=== PATIENT | male | born 1995 | race Caucasian/White ===

== ENCOUNTER 2018-04-05 21:12 | Inpatient (IN) | payer SELFPAY ==
[~2018-04-05] VITALS: Ht 177.8 cm; Wt 56.7 kg
[2018-04-05] MEDS ORDERED: VANCOMYCIN 1 GM VIAL ONE (23:25)
[2018-04-05] MEDS ORDERED: VANCOMYCIN 1 GM in IV D5W 250 ML IV ONE (23:30)
[2018-04-05 23:54] LABS: BASOPHILS # (AUTO) 0.1 /CMM (0.0-0.2); BASOPHILS % (AUTO) 0.6 % (0.0-2.0); EOSINOPHILS % (AUTO) 2.2 % (0.0-6.0); HEMATOCRIT 51 % (39-51); HEMOGLOBIN 16.2 g/dL (13.5-17.5); LYMPHOCYTES # (AUTO) 2.3 /CMM (0.8-4.8); LYMPHOCYTES % (AUTO) 26.8 % (20.0-44.0); MEAN CORPUSCULAR HEMOGLOBIN 29 PG (26.0-33.0); MEAN CORPUSCULAR HGB CONC 32 g/dl (31.0-36.0); MEAN CORPUSCULAR VOLUME 92 fL (80-96); MONOCYTES # (AUTO) 0.5 /CMM (0.1-1.30); MONOCYTES % (AUTO) 5.9 % (2.0-12.0); NEUTROPHILS # (AUTO) 5.5 /CMM (1.8-8.9); NEUTROPHILS % (AUTO) 64.5 % (43.0-81.0); PLATELET COUNT (AUTO) 286 /CMM (150-450); RDW COEFFICIENT OF VARIATION 13.2 (11.5-15.0); RED BLOOD CELL COUNT(AUTO) 5.57 MIL/uL (4.5-6.0); WHITE BLOOD COUNT (AUTO) 8.6 K/uL (4.3-11.0)
[2018-04-06 00:06] LABS: CALCIUM, SERUM 9.2 mg/dL (8.5-10.1); POTASSIUM 3.7 mmol/L (3.5-5.1)
[2018-04-06 00:12] LABS: INR 0.99 (0.87-1.13)
[2018-04-06] MEDS ORDERED: diphenhydrAMINE HCL 50 MG/ML VIAL ONE (00:35)
[2018-04-06] MEDS ORDERED: diphenhydrAMINE HCL 50 MG/ML VIAL IV ONE (01:00)
[2018-04-06] MEDS ORDERED: ONDANSETRON HCL/PF 4 MG/2 ML VIAL IVP PRN (02:30)
[2018-04-06] MEDS ORDERED: ACETAMINOPHEN 325 MG TABLET PO PRN (02:30)
[2018-04-06] MEDS ORDERED: diphenhydrAMINE HCL 50 MG/ML VIAL IV PRN (02:30)
[2018-04-06] MEDS ORDERED: ZOLPIDEM TARTRATE 5 MG TABLET PO PRN (02:30)
[2018-04-06 02:48] VITALS: BP 114/69
[2018-04-06 04:00] VITALS: BP 116/68
[2018-04-06] MEDS ORDERED: CLINDAMYCIN IV RTU IN D5W 600 MG/50 ML PIGGYBACK IV ONE (05:00)
[2018-04-06] MEDS ORDERED: CLINDAMYCIN 900 MG/6 ML VIAL ONE (05:21)
[2018-04-06 08:00] VITALS: BP 105/67
[2018-04-06] MEDS ORDERED: CLINDAMYCIN IV RTU IN D5W 900 MG/50 ML PIGGYBACK IV SCH (11:00)
[2018-04-06] MEDS: CLINDAMYCIN 900 MG in IV D5W 50 ML IV SCH ×2 (13:23→20:20)
[2018-04-06 16:00] VITALS: BP 119/74
[2018-04-06] MEDS: HYDROCODONE/APAP 10/325MG 1 EA TABLET PO PRN (17:37)
[2018-04-06 20:00] VITALS: BP 112/68
[2018-04-07 04:00] VITALS: BP 107/54
[2018-04-07] MEDS: CLINDAMYCIN 900 MG in IV D5W 50 ML IV SCH ×3 (05:00→21:04)
[2018-04-07 07:24] LABS: BASOPHILS % (AUTO) 0.4 % (0.0-2.0); EOSINOPHILS % (AUTO) 2.7 % (0.0-6.0); HEMATOCRIT 48 % (39-51); HEMOGLOBIN 15.6 g/dL (13.5-17.5); LYMPHOCYTES % (AUTO) 26.8 % (20.0-44.0); MEAN CORPUSCULAR HEMOGLOBIN 30 PG (26.0-33.0); MEAN CORPUSCULAR HGB CONC 33 g/dl (31.0-36.0); MEAN CORPUSCULAR VOLUME 92 fL (80-96); MONOCYTES # (AUTO) 0.7 /CMM (0.1-1.30); MONOCYTES % (AUTO) 9.4 % (2.0-12.0); NEUTROPHILS # (AUTO) 4.4 /CMM (1.8-8.9); NEUTROPHILS % (AUTO) 60.7 % (43.0-81.0); PLATELET COUNT (AUTO) 266 /CMM (150-450); RDW COEFFICIENT OF VARIATION 13.1 (11.5-15.0); RED BLOOD CELL COUNT(AUTO) 5.17 MIL/uL (4.5-6.0); WHITE BLOOD COUNT (AUTO) 7.3 K/uL (4.3-11.0)
[2018-04-07 07:36] LABS: CALCIUM, SERUM 9.4 mg/dL (8.5-10.1); CREATININE 1.2 mg/dL (0.6-1.3); MAGNESIUM 2.3 mg/dL (1.8-2.4); PHOSPHORUS 4.9 mg/dL (2.5-4.9); POTASSIUM 4.2 mmol/L (3.5-5.1)
[2018-04-07 08:00] VITALS: BP 104/49
[2018-04-07] MEDS: HYDROCODONE/APAP 10/325MG 1 EA TABLET PO PRN ×2 (10:18→15:50)
[2018-04-07 16:00] VITALS: BP 115/71
[2018-04-07 20:00] VITALS: BP 114/68
[2018-04-08 04:00] VITALS: BP 110/61
[2018-04-08] MEDS: CLINDAMYCIN 900 MG in IV D5W 50 ML IV SCH ×3 (05:17→20:21)
[2018-04-08 08:00] VITALS: BP 104/89
[2018-04-08] MEDS: DAKINS QUARTER STRENGTH (0.125%) 480 ML BOTTLE TOP SCH (08:03)
[2018-04-08] MEDS: HYDROCODONE/APAP 10/325MG 1 EA TABLET PO PRN ×2 (09:56→16:32)
[2018-04-08] MEDS ORDERED: ACET325T53 PO (14:20)
[2018-04-08 16:00] VITALS: BP 115/69
[2018-04-09 04:00] VITALS: BP 104/66
[2018-04-09] MEDS: CLINDAMYCIN 900 MG in IV D5W 50 ML IV SCH ×2 (05:29→12:00)
[2018-04-09 08:00] VITALS: BP 126/56
[2018-04-09] MEDS: DAKINS QUARTER STRENGTH (0.125%) 480 ML BOTTLE TOP SCH (09:08)
== END 2018-04-09 13:53 | disposition home health service (06) | DRG 502 ==
LOC: ER 21:21 → MEDSG1 04-06 01:02
PROVIDERS: ADMIT Nurse Practitioner Acute Care; ATTEND Student in an Organized Health Care Education/Training Program
PROC: 0KBV0ZZ Excision of Right Foot Muscle, Open Approach (ICD-10-PCS; principal; 2018-04-07)
PROC: 02HV33Z Insertion of Infusion Device into Superior Vena Cava, Percutaneous Approach (ICD-10-PCS; 2018-04-08)
PROC: B548ZZA Ultrasonography of Superior Vena Cava, Guidance (ICD-10-PCS; 2018-04-08)
DX: M86.171 Other acute osteomyelitis, right ankle and foot (principal); L03.031 Cellulitis of right toe; L97.519 Non-pressure chronic ulcer of other part of right foot with unspecified severity; F17.210 Nicotine dependence, cigarettes, uncomplicated; Z88.1 Allergy status to other antibiotic agents; F12.90 Cannabis use, unspecified, uncomplicated
CPT/HCPCS: 36415; 71045-TC; 73660-TC; 73718-TC; 80048-TC; 80061-TC; 83605-TC; 83735-TC; 84100-TC; 85025-TC; 85730-TC; 87040-TC; 87081-TC; A4606; A6402; A6407; C1751; J1200; J3370; J3490; J7050; J7060; Z7610

== ENCOUNTER 2018-04-16 08:50 | Outpatient (CLI) | payer SELFPAY ==
[~2018-04-16 08:50] MED LIST: ACET325T53 PO
== END 2018-04-16 23:59 | disposition home or self-care (01) ==
LOC: WOU 08:50
PROVIDERS: ATTEND Nurse Practitioner
DX: L03.031 Cellulitis of right toe (principal); S91.101D Unspecified open wound of right great toe without damage to nail, subsequent encounter; X58.XXXD Exposure to other specified factors, subsequent encounter; M86.171 Other acute osteomyelitis, right ankle and foot; Z72.0 Tobacco use
CPT/HCPCS: 99213; A6402; G0463

== ENCOUNTER 2018-05-25 14:18 | Outpatient (CLI) | payer SELFPAY | END 2018-05-25 23:59 | disposition home or self-care (01) | LOC: RAD 14:18 | PROVIDERS: ATTEND Nurse Practitioner | DX: M86.9 Osteomyelitis, unspecified (principal) | CPT/HCPCS: 73630; Z7610 ==